=== PATIENT | female | born 1935 | race Caucasian/White ===

== ENCOUNTER 2019-10-18 10:43 | Inpatient (IN) | payer OTHER ==
[2019-10-18 14:25] LABS: ALT/SGPT 30 U/L (12-78); AST/SGOT 42 U/L (15-37); Alkaline Phosphatase 63 U/L (45-117); BUN Blood Urea Nitrogen 40 mg/dL (7-18); Bicarbonate 26 mmol/L (21-32); Bilirubin Direct 0.2 mg/dL (0-0.2); Bilirubin Total 0.3 mg/dL (0.2-1.0); Glucose Level 108 mg/dL (74-106); Magnesium 2.5 mg/dL (1.8-2.4); NT PRO-BNP 122 pg/mL (<450); Potassium 3.8 mmol/L (3.5-5.1); Protein, Total 6.9 g/dL (6.4-8.2); Sodium Level 142 mmol/L (136-145); Troponin I < 0.02 ng/mL (0.0-0.045)
[2019-10-18 14:34] LABS: Absolute Lymphocytes (CBC) 0.6 K/uL (0.7-4.9); Basophils % 0.4 % (0-1.3); Hematocrit 35.7 % (36.0-45.0); Lymphocytes % 11.9 % (15.3-44.8); MPV 7.8 fL (7.6-11.3); Protime INR 1.01; RBC Red Blood Cell Count 3.87 M/uL (3.86-4.86)
--- NOTE | 2019-10-18 14:53 | RAD REPORT ---
EXAM DESCRIPTION: RAD - Chest Single View - 10/18/2019 2:15 pm CLINICAL HISTORY: FALL,TRAUMA Chest pain. COMPARISON: CHEST SINGLE VIEW dated 03/23/2013 FINDINGS: Portable technique limits examination quality. The lungs are grossly clear. The heart is upper limit of normal in size. No displaced fractures. IMPRESSION: No acute intrathoracic process suspected.
--- NOTE | 2019-10-18 15:28 | P.HP ---
Certification for Inpatient Patient admitted to: Observation With expected LOS: <2 Midnights Practitioner: I am a practitioner with admitting privileges, knowledge of patient current condition, hospital course, and medical plan of care. Services: Services provided to patient in accordance with Admission requirements found in Title 42 Section 412.3 of the Code of Federal Regulations Patient History Date of Service: 10/18/19 Reason for admission: Syncope History of Present Illness: 83-year-old woman with a history CVA in the past was brought to the emergency department by EMS because she passed at a counter while trying to get a movie ticket. Patient reports she fell backwards and hit her head. She became awake while still on the floor and does not know how many min she passed out. She denied any warning signs or dizziness or palpitations prior to the fall. She denied any headache or shortness of breath. She recently developed upper respiratory infection for which she was taking Z-Leighton. She denies any limb weakness. No facial deviation, and no problem with speech or vision. Head CT in the ED reported no acute intracranial changes. Her EKG demonstrated sinus rhythm. Her blood work shows some signs of dehydration. Her blood pressure was soft as recorded in the ED. Initial troponin negative. Patient is placed under observation for further syncope workup Allergies Penicillins Allergy (Intermediate, Verified 03/23/13 09:22) Hives Home Medications: Ascorbic Acid [Vitamin C*] 500 mg PO DAILY 03/23/13 Cholecalciferol (Vitamin D3) [Vitamin D 1000 Iu Tab*] 1,000 unit PO DAILY Estrogens,Conj [Premarin*] 0.625 mg PO DAILY 03/23/13 Ezetimibe/Simvastatin [Vytorin 10-20 mg Tablet] 1 each PO BEDTIME 03/23/13 Iron,Carb/Vit C/Vit B12/Folic [Iron 100 Plus Tablet] 1 each PO SEECOM 03/23/13 Multivitamin [Multiple Vitamins] 1 each PO DAILY 03/23/13 Aspirin/Dipyridamole [Aggrenox 25 mg-200 mg Capsule] 1 each PO BID #60 cpmp.12hr 03/24/13 Acetam/Caff/Butal [Fioricet*] 1 tab PO Q6H PRN #30 tab 03/25/13 - Past Medical/Surgical History Diabetic: No -: Hyperlipidemia -: -: CVA - Family History Family History: Reviewed- Non-Contributory (She stated her parents from old age.) - Social History Alcohol use: No CD- Drugs: No Caffeine use: Yes Review of Systems Other: General: No fever, no malaise, no unintentional weight loss. Eyes: No eye discharge, Respiratory: No shortness of breath. She cough occasionally. CVS: No chest pain, no palpitation, no lightheadedness. GI: No abdominal pain, no nausea no vomit, no constipation, no diarrhea. Genitourinary: No dysuria, no urinary frequency, no incontinence, no hematuria. Musculoskeletal: No joint pains, or joint swelling, no gait instability. Neurology: No headache, no asymmetric weakness, no problem with swallowing. Except as documented, all other systems reviewed and negative. Physical Examination - Physical Exam General: Alert, In no apparent distress, Oriented x3 HEENT: PERRLA, Mucous membr. moist/pink, Other (Small bruise noted on the occipita area of scalp.), EOMI, Sclerae nonicteric Neck: Supple, 2+ carotid pulse no bruit, JVD not distended Respiratory: Clear to auscultation bilaterally, Normal air movement Cardiovascular: No edema, Regular rate/rhythm, Normal S1 S2 Capillary refill: <2 Seconds Gastrointestinal: Normal bowel sounds, Soft and benign, Non-distended, No tenderness Musculoskeletal: No swelling Integumentary: No rashes Neurological: Normal speech, Normal strength at 5/5 x4 extr, Cranial nerves 3- 12 intact, Normal affect - Studies Laboratory Data (last 24 hrs) 10/18/19 12:10: PT 11.9, INR 1.01 10/18/19 12:10: WBC 5.0, Hgb 11.8 L, Hct 35.7 L, Plt Count 241 10/18/19 12:10: Sodium 142, Potassium 3.8, BUN 40 H, Creatinine 1.55 H, Glucose 108 H, Magnesium 2.5 H, Total Bilirubin 0.3, AST 42 H, ALT 30, Alkaline Phosphatase 63, Troponin I < 0.02 Assessment and Plan - Problems (Diagnosis) (1) Syncope and collapse Current Visit: Yes Status: Acute (2) Hyperlipidemia Current Visit: Yes Status: Acute (3) URI (upper respiratory infection) Current Visit: Yes Status: Acute (4) Acute renal failure Current Visit: Yes Status: Acute (5) History of CVA (cerebrovascular accident) Current Visit: Yes Status: Chronic - Plan Place under observation with telemetry. Trend troponin Syncope work up with echocardiogram and carotid Doppler. Continue Aggrenox Check lipid profile Statin pending lipid profile IV hydration Monitor renal function. Check orthostatics vitals. - Advance Directives Does patient have a Living Will: Yes Does patient have a Durable POA for Healthcare: No
[2019-10-18] MEDS ORDERED: ACETAMINOPHEN 500 MG TAB PO PRN (16:10)
[2019-10-18] MEDS ORDERED: ONDANSETRON 4 MG/2 ML VIAL IV PRN (16:10)
[2019-10-18 17:52] VITALS: BMI 17.6
[2019-10-18] MEDS ORDERED: POTASSIUM CL SA 10 MEQ TAB PO ONE ×2 (17:55→20:00)
[2019-10-18] MEDS: NA CHLORIDE 0.9% 1,000 ML IV SCH (18:35)
[2019-10-18 19:02] LABS: Thyroid Stimulating Hormone 0.543 uIU/mL (0.360-3.740); Troponin I < 0.02 ng/mL (0.0-0.045)
--- NOTE | 2019-10-18 23:32 | RAD REPORT ---
EXAM DESCRIPTION: CT - [id number] - 10/18/2019 2:00 pm CLINICAL HISTORY: Fall, head and neck injury COMPARISON: CT head February 2013. TECHNIQUE: Axial 5 mm thick images of the head were obtained. Axial 2 mm thick images of the cervic al spine were obtained with sagittal and coronal reconstruction images generated and reviewed. All CT scans are performed using dose optimization technique as appropriate and may include automated exposure control or mA/KV adjustment according to patient size. FINDINGS: No intracranial hemorrhage, mass, edema or acute intracranial finding. No acute cortical based infarc tion. No cortical edema or sulcal effacement. Mild atrophy changes are present. Ventricles are in pro portion to any volume loss. Patient has very pronounced chronic ischemic change throughout the cerebr al white matter extending into the basal ganglia and thalamus tissues. No extra-axial fluid collectio ns. With mastoid air cells are clear. Mucosal thickening and air-fluid levels present in each maxilla ry sinus. No globe or orbit abnormality seen. Very slight wedging of the C5 body noted. This is common in the setting of degenerative change. No ac teller compression fracture seen. Prominent anterior endplate spurring changes are present C5-T1. Disc s pace narrowing is present at all levels from C4-T1. Prominent facet joint degenerative changes are pr esent. There is significant left foraminal stenosis at C3-4. Slight anterior subluxation present C4 o n C5 secondary to degenerative change. No fracture or acute bony abnormality. Central canal detail is inherently limited. No paraspinal mass or hematoma. Due to technical malfunctions occurring at the time of the examination, a report could not be generat ed and no prior imaging studies could be reviewed. Therefore, final written report was delayed. Findi ngs were telephoned to the referring clinician at the time of the study. IMPRESSION: Prominent chronic ischemic change and mild atrophy changes are present. No acute intracr anial finding. Prominent cervical spine degenerative change present without acute finding identifiable. Bilateral maxillary sinusitis.
--- NOTE | 2019-10-18 23:35 | EDPHYS ---
Physician Documentation [facility] Name: Galina Rodas Age: 83 yrs Sex: Female : 1935 Arrival Date: 10/18/2019 Time: 10:46 Bed 17 Private MD: ED Physician Dixie Carrillo HPI: 10/18 11:06 This 83 yrs old Female presents to ER via EMS with complaints of Head injury, syncope. jmm 11:06 The patient has experienced syncope, collapsed. Onset: The symptoms/episode jmm began/occurred acutely, just prior to arrival. Duration: This was a single episode. Context: occurred. Associated injury: Head/face:. This is an 83 year old female that presents to the ED after a syncopal episode which occurred just prior to arrival. Patient states she was standing in line and collapsed, hitting her head. Patient states having chest congestion over the past few days. PCP had evaluated her for this. Patient currently denies chest pain, shortness of breath, abdominal pain. . Historical: - Allergies: 12:45 PENICILLINS; ph - Home Meds: 12:45 unknown blood thinner [Active]; ph - PMHx: 12:45 TIA; ph - Immunization history: Last tetanus immunization: unknown. - Social history:: Smoking status: Patient/guardian denies using tobacco. - Ebola Screening: : No symptoms or risks identified at this time. ROS: 11:06 Constitutional: Negative for fever, chills, and weight loss. jmm 11:06 Cardiovascular: Negative for chest pain, palpitations, and edema, Abdomen/GI: Negative for abdominal pain, nausea, vomiting, diarrhea, and constipation, Back: Negative for injury and pain, Neuro: Negative for headache, weakness, numbness, tingling, and seizure. 11:06 Respiratory: Positive for cough. 11:06 All other systems are negative. Exam: 11:06 Constitutional: This is a well developed, well nourished patient who is awake, alert, jmm and in no acute distress. 11:06 Eyes: EOMI, no conjunctival erythema appreciated ENT: Moist Mucus Membranes Neck: Trachea midline, Supple Chest/axilla: Normal chest wall appearance and motion. 11:06 Head/face: posterior hematoma noted. 11:06 Cardiovascular: Rate: normal, Rhythm: regular. 11:06 Respiratory: the patient does not display signs of respiratory distress, Respirations: normal. 11:06 Abdomen/GI: Inspection: abdomen appears normal, Bowel sounds: normal, Palpation: abdomen is soft and non-tender. 11:06 Musculoskeletal/extremity: ROM: intact in all extremities. 11:06 Skin: Appearance: Color: normal in color. 11:06 Neuro: Orientation: is normal, Mentation: is normal, Memory: is normal. 11:06 Psych: Behavior/mood is pleasant, cooperative. Vital Signs: 11:10 BP 115 / 57; Pulse 68; Resp 18; Temp 97.6; Pulse Ox 98% on R/A; ph 11:59 BP 107 / 58; Pulse 67; Resp 18; Pulse Ox 100% on R/A; ph 14:22 BP 126 / 66; Pulse 67; Resp 18; Pulse Ox 98% on 2 lpm NC; mg2 15:23 BP 121 / 64; Pulse 73; Resp 18; Pulse Ox 97% on 2 lpm NC; mg2 [place] Coma Score: 10:50 Eye Response: spontaneous(4). Verbal Response: oriented(5). Motor Response: obeys ph commands(6). Total: 15. Trauma Score (Adult): 10:50 Eye Response: spontaneous(1); Verbal Response: oriented(1); Motor Response: obeys ph commands(2); Systolic BP: > 89 mm Hg(4); Respiratory Rate: 10 to 29 per min(4); [place]mo Score: 15; Trauma Score: 12 11:59 Eye Response: spontaneous(1); Verbal Response: oriented(1); Motor Response: obeys ph commands(2); Systolic BP: > 89 mm Hg(4); Respiratory Rate: 10 to 29 per min(4); [place]mo Score: 15; Trauma Score: 12 MDM: 11:02 Patient medically screened. [facility] 14:01 Data reviewed: vital signs, nurses notes. Counseling: I had a detailed discussion with ras the patient and/or guardian regarding: the historical points, exam findings, and any diagnostic results supporting the discharge/admit diagnosis, lab results, radiology results, the need for further work-up and treatment in the hospital. ED course: I discussed the patient with Dr. Lemon whom accepted admission. . 10/18 11:41 Order name: Cardiac monitoring; Complete Time: 12:17 [facility] 10/18 11:41 Order name: EKG - Nurse/Tech; Complete Time: 12:17 [facility] 10/18 11:41 Order name: IV Saline Lock; Complete Time: 12: [facility] 10/18 11:41 Order name: Labs collected and sent; Complete Time: 12:17 [facility] 10/18 11:41 Order name: O2 Per Protocol; Complete Time: 12:17 [facility] 10/18 11:41 Order name: O2 Sat Monitoring; Complete Time: 12:18 [facility] Administered Medications: No medications were administered Disposition: 10/18/19 14:04 Hospitalization ordered by Jeff Lemon for Observation. Preliminary diagnosis are Syncope and collapse, Dehydration. - Bed requested for Telemetry/MedSurg (observation). - Status is Observation. mg2 - Condition is Stable. - Problem is new. - Symptoms have improved. UTI on Admission? No Addendum: 10/26/2019 07:28 Co-signature as Attending Physician, Dixie Carrillo MD. m a2 Signatures: Myriam Dai RN RN Hermilo Goldstein PA PA [facility] Trinidad Gil RN RN Dixie Carrillo MD MD ma2 Zac Cullen RN RN mg2 Corrections: (The following items were deleted from the chart) 10/18 15:36 14:04 Hospitalization Ordered by Jeff Lemon for Observation. Preliminary diagnosis dw is Syncope and collapse; Dehydration. Bed requested for Telemetry/MedSurg (observation). Status is Observation. Condition is Stable. Problem is new. Symptoms have improved. UTI on Admission? No. [facility] 16:26 15:36 10/18/2019 14:04 Hospitalization Ordered by Jeff Lemon for Observation. mg2 Preliminary diagnosis is Syncope and collapse; Dehydration. Bed requested for Telemetry/MedSurg (observation). Status is Observation. Condition is Stable. Problem is new. Symptoms have improved. UTI on Admission? No. dw
--- NOTE | 2019-10-18 23:35 | ER ---
Nurse's Notes [facility] Name: Galina Rodas Age: 83 yrs Sex: Female : 1935 Arrival Date: 10/18/2019 Time: 10:46 Bed 17 Private MD: Diagnosis: Syncope and collapse;Dehydration Presentation: 10/18 10:50 Presenting complaint: EMS states: Was at movie theater, stood up from seated position ph and had syncopal episode, fall and hit back of head, does take blood thinners but does not know what kind. Transition of care: patient was not received from another setting of care. Onset of symptoms was October 18, 2019. Risk Assessment: Do you want to hurt yourself or someone else? Patient reports no desire to harm self or others. Initial Sepsis Screen: Does the patient meet any 2 criteria? No. Patient's initial sepsis screen is negative. Does the patient have a suspected source of infection? No. Patient's initial sepsis screen is negative. Care prior to arrival: IV initiated. 18 GA, in the right antecubital area. 10:50 Method Of Arrival: EMS: [facility] ph 10:50 Acuity: AMARIS 2 ph 10:50 Mechanism of Injury: Fall from standing position. Trauma event details: Injury occurred ph in the [facility], Injury occurred: in a public building. Injury occurred: October 18, 2019. Trauma Activation: Physician: ED Physician; Name: Lorena; Notified At: ; Arrived At: Physician: General Surgeon; Name: ; Notified At: ; Arrived At: Physician: Radiology; Name: ; Notified At: ; Arrived At: Physician: Respiratory; Name: ; Notified At: ; Arrived At: Physician: Lab; Name: ; Notified At: ; Arrived At: Historical: - Allergies: 12:45 PENICILLINS; ph - Home Meds: 12:45 unknown blood thinner [Active]; ph - PMHx: 12:45 TIA; ph - Immunization history: Last tetanus immunization: unknown. - Social history:: Smoking status: Patient/guardian denies using tobacco. - Ebola Screening: : No symptoms or risks identified at this time. Screenin:44 Abuse screen: Denies threats or abuse. Denies injuries from another. Tuberculosis ph screening: No symptoms or risk factors identified. 12:47 Nutritional screening: No deficits noted. Fall Risk Fall in past 12 months (25 points). ph No secondary diagnosis (0 pts). IV access (20 points). Ambulatory Aid- None/Bed Rest/Nurse Assist (0 pts). Gait- Normal/Bed Rest/Wheelchair (0 pts) Mental Status- Oriented to own ability (0 pts). Total [place] Fall Scale indicates Low Risk Score (25-44 pts). Fall prevention measures have been instituted. Side Rails Up X 2 Frequent Obs/Assesments occuring As available Patient and Family Educated on Fall Prevention Program and strategies. Primary Survey: 10:50 NO uncontrolled hemorrhage observed. A: A: The patient is alert. Airway: patent, No ph supplemental oxygen in use on arrival. Oral cavity: clear. Breathing/Chest: Respiratory pattern:. Breathing/Chest: Respiratory pattern: regular, Respiratory effort: spontaneous, unlabored, Breath sounds: clear, bilaterally. Chest inspection: symmetrical rise and fall of the chest. Circulation: Skin color: pink, Skin temperature: warm, dry. Disability Alert. Exposure/Environment: There is no evidence of uncontrolled external bleeding. Obvious injury(ies) are noted at this time: hematoma to back of head. 13:36 Reassessment Airway Airway Patent Breathing/Chest Respiratory pattern Regular mg2 Respiratory effort Spontaneous Unlabored Breath sounds Clear Circulation Color [place] Disability Alert. Secondary Survey: 10:50 HEENT: Head Other hematoma to occipital area. Gastrointestinal: No deficits noted. ph Musculoskeletal: No deficits noted. Assessment: 11:00 General: Appears in no apparent distress. comfortable, well groomed, Behavior is calm, ph cooperative, appropriate for age. Pain: Complains of pain in occipital area. Neuro: Level of Consciousness is awake, alert, obeys commands, Oriented to person, place, time, situation, Reports dizziness, headache a syncopal episode. Cardiovascular: Capillary refill < 3 seconds in bilateral fingers Patient's skin is warm and dry. Respiratory: Airway is patent Respiratory effort is even, unlabored, Respiratory pattern is regular, symmetrical. GI: No signs and/or symptoms were reported involving the gastrointestinal system. Patient currently denies nausea, vomiting. Derm: Skin is intact, Skin is pink, warm \T\ dry. Musculoskeletal: Circulation, motion, and sensation intact. Range of motion: intact in all extremities, Swelling present in back of head. 12:00 Reassessment: Patient appears in no apparent distress at this time. Patient and/or ph family updated on plan of care and expected duration. Pain level reassessed. Patient is alert, oriented x 3, equal unlabored respirations, skin warm/dry/pink. Pt resting quietly, awaiting CT scan results. 13:36 Reassessment: Patient appears in no apparent distress at this time. Patient and/or mg2 family updated on plan of care and expected duration. Pain level reassessed. Patient is alert, oriented x 3, equal unlabored respirations, skin warm/dry/pink. 14:24 Reassessment: patient informed about the plan for admission and she agreed. mg2 15:54 Reassessment: meal served. mg2 Vital Signs: 11:10 BP 115 / 57; Pulse 68; Resp 18; Temp 97.6; Pulse Ox 98% on R/A; ph 11:59 BP 107 / 58; Pulse 67; Resp 18; Pulse Ox 100% on R/A; ph 14:22 BP 126 / 66; Pulse 67; Resp 18; Pulse Ox 98% on 2 lpm NC; mg2 15:23 BP 121 / 64; Pulse 73; Resp 18; Pulse Ox 97% on 2 lpm NC; mg2 [place] Coma Score: 10:50 Eye Response: spontaneous(4). Verbal Response: oriented(5). Motor Response: obeys ph commands(6). Total: 15. Trauma Score (Adult): 10:50 Eye Response: spontaneous(1); Verbal Response: oriented(1); Motor Response: obeys ph commands(2); Systolic BP: > 89 mm Hg(4); Respiratory Rate: 10 to 29 per min(4); Elmo Score: 15; Trauma Score: 12 11:59 Eye Response: spontaneous(1); Verbal Response: oriented(1); Motor Response: obeys ph commands(2); Systolic BP: > 89 mm Hg(4); Respiratory Rate: 10 to 29 per min(4); Elmo Score: 15; Trauma Score: 12 ED Course: 10:46 Patient arrived in ED. ph 10:48 Hermilo Goldstein PA is PHCP. [facility] 10:48 Dixie Carrillo MD is Attending Physician. [facility] 10:50 Trinidad Gil RN is Primary Nurse. ph 10:51 Triage completed. ph 11:00 Maintain EMS IV. Dressing intact. Good blood return noted. Site clean \T\ dry. Gauge \T\ ph site: 18 RAC. Patient maintains SpO2 saturation greater than 95% on room air. Thermoregulation: warm blanket given to patient. 12:46 Arm band placed on. ph 12:46 Patient has correct armband on for positive identification. Bed in low position. Call ph light in reach. Side rails up X2. campus monitor on. Pulse ox on. NIBP on. Door closed. Noise minimized. Lights dimmed. Warm blanket given. 13:36 No provider procedures requiring assistance completed. mg2 14:02 Jeff Lemon is Hospitalizing Provider. ras Administered Medications: No medications were administered Intake: 10:50 PO: 0ml; Total: 0ml. ph Output: 10:50 Urine: 0ml; Total: 0ml. ph Outcome: 14:04 Decision to Hospitalize by Provider. ras 16:26 Patient left the ED. mg2 Signatures: Hermilo Goldstein PA PA jmm Hall, Patricia, RN RN Zac Cullne RN RN mg2
[2019-10-19] MEDS: NA CHLORIDE 0.9% 1,000 ML IV SCH ×3 (03:54→22:14)
[2019-10-19 04:16] LABS: Urine Appearance CLEAR; Urine Bilirubin NEGATIVE (NEG); Urine Blood NEGATIVE (NEG); Urine Color YELLOW; Urine Glucose NEGATIVE (NEG); Urine Microscopic Reflex NO UMIC; Urine Protein NEGATIVE (NEG); Urine Specific Gravity 1.015 (1.005-1.030); Urine Urobilinogen 0.2 mg/dL (0.2-1.0); Urine pH 5.5 (5.0-7.0)
[2019-10-19 06:40] LABS: Absolute Lymphocytes (CBC) 1.4 K/uL (0.7-4.9); Basophils % 0.4 % (0-1.3); Hematocrit 32.5 % (36.0-45.0); MPV 7.8 fL (7.6-11.3); RBC Red Blood Cell Count 3.57 M/uL (3.86-4.86)
[2019-10-19 06:41] LABS: Magnesium 2.2 mg/dL (1.8-2.4); Phosphorus 2.4 mg/dL (2.5-4.9); Potassium 3.7 mmol/L (3.5-5.1)
[2019-10-19] MEDS ORDERED: POTASSIUM CL SA 10 MEQ TAB PO ONE (08:00)
[2019-10-19] MEDS: POTASS/SODIUM PHOSPHATE 1 PKT POWD.PACK PO SCH ×3 (09:20→11:30)
[2019-10-19] MEDS: ENOXAPARIN 40 MG/0.4 ML SQ SCH (09:21)
--- NOTE | 2019-10-19 10:47 | P.PN ---
Subjective Date of Service: 10/19/19 Chief Complaint: Syncope Patient states she is not feeling too good today. She reports persistent nonproductive cough. She denies any chest pain or shortness of breath. She is orthostatic. Acute renal failure has resolved. Physical Examination - Vital Signs Temperature: 100.2 F Blood Pressure: 148/64 Pulse: 68 Respirations: 20 Pulse Ox (%): 90 - Physical Exam General: Alert, In no apparent distress HEENT: Mucous membr. moist/pink Neck: Supple, JVD not distended Respiratory: Clear to auscultation bilaterally, Normal air movement Cardiovascular: No edema, Regular rate/rhythm, Normal S1 S2 Gastrointestinal: Normal bowel sounds, Soft and benign, No tenderness Musculoskeletal: No swelling Integumentary: No rashes Neurological: Normal speech, Normal strength at 5/5 x4 extr - Studies Laboratory Data (last 24 hrs) 10/18/19 12:10: PT 11.9, INR 1.01 10/18/19 12:10: WBC 5.0, Hgb 11.8 L, Hct 35.7 L, Plt Count 241 10/18/19 12:10: Sodium 142, Potassium 3.8, BUN 40 H, Creatinine 1.55 H, Glucose 108 H, Magnesium 2.5 H, Total Bilirubin 0.3, AST 42 H, ALT 30, Alkaline Phosphatase 63, Troponin I < 0.02 Assessment And Plan - Current Problems (Diagnosis) (1) Syncope and collapse Current Visit: Yes Status: Acute (2) Hyperlipidemia Current Visit: Yes Status: Acute (3) URI (upper respiratory infection) Current Visit: Yes Status: Acute (4) Acute renal failure Current Visit: Yes Status: Acute (5) History of CVA (cerebrovascular accident) Current Visit: Yes Status: Chronic - Plan Trend troponin negative. Am told no echocardiogram and carotid Doppler till Thursday. They can be done as an outpatient. Continue Aggrenox Continue IV hydration IV hydration Monitor renal function. Monitor orthostatics vitals.
[2019-10-19] MEDS: guaiFENesin 100 MG/5 ML UCUP PO PRN (18:39)
[2019-10-20 06:46] LABS: Phosphorus 2.3 mg/dL (2.5-4.9); Potassium 3.7 mmol/L (3.5-5.1)
--- NOTE | 2019-10-20 08:13 | EKG ---
Test Date: 2019-10-18 Test Time: 12:14:47 [employer] Counselor: JULIO MEASUREMENT RESULTS: Intervals: Rate: 66 ND: 120 QRSD: 94 QT: 428 QTc: 448 Dixie: P: 41 ND: 120 QRS: 66 T: 71 INTERPRETIVE STATEMENTS: Normal sinus rhythm Incomplete right bundle branch block Borderline ECG Compared to ECG 03/23/2013 09:29:25 Incomplete right bundle-branch block now present ST (T wave) deviation no longer present Electronically Signed On 10-20-19 08:10:30 [employer] METER READER by German Zamorano
[2019-10-20] MEDS: NA CHLORIDE 0.9% 1,000 ML IV SCH (08:29)
[2019-10-20] MEDS: ENOXAPARIN 40 MG/0.4 ML SQ SCH (08:31)
[2019-10-20] MEDS ORDERED: POTASSIUM PHOS IN 0.9 % NACL 15 MMOL/250 ML BAG IV ONE (09:00)
[2019-10-20] MEDS: guaiFENesin 100 MG/5 ML UCUP PO PRN ×2 (11:03→21:03)
--- NOTE | 2019-10-20 11:16 | P.PN ---
Subjective Date of Service: 10/20/19 Chief Complaint: Syncope Subjective: No new changes, Tolerating diet (still dizziness on standing , orthostatic vitals from yesterday show some drop in BP with standing), C/O voiced Review of Systems Unremarkable Physical Examination - Vital Signs Temperature: 99.2 F Blood Pressure: 174/81 Pulse: 63 Respirations: 18 Pulse Ox (%): 96 - Physical Exam General: Alert, In no apparent distress, Oriented x3 HEENT: Atraumatic, Normocephalic Respiratory: Clear to auscultation bilaterally, Normal air movement Cardiovascular: No edema, Normal pulses, Regular rate/rhythm, Normal S1 S2 Gastrointestinal: Normal bowel sounds, Soft and benign Musculoskeletal: No clubbing, No swelling Integumentary: No rashes, No breakdown Neurological: Normal gait, Normal speech - Studies Laboratory Last Values WBC 3.6 K/uL (4.3-10.9) L D 10/19/19 05:49 RBC 3.57 M/uL (3.86-4.86) L 10/19/19 05:49 Hgb 11.2 g/dL (12.0-15.0) L 10/19/19 05:49 Hct 32.5 % (36.0-45.0) L 10/19/19 05:49 MCV 90.9 fL (80-100) 10/19/19 05:49 MCH 31.3 pg (27.0-35.0) 10/19/19 05:49 MCHC 34.5 g/dL (32.0-36.0) 10/19/19 05:49 RDW 12.6 % (12.1-15.2) 10/19/19 05:49 Plt Count 218 K/uL (152-406) 10/19/19 05:49 MPV 7.8 fL (7.6-11.3) 10/19/19 05:49 Neutrophils % 46.6 % (41.7-73.7) 10/19/19 05:49 Lymphocytes % 38.0 % (15.3-44.8) 10/19/19 05:49 Monocytes % 14.9 % (3.3-12.3) H 10/19/19 05:49 Eosinophils % 0.1 % (0-4.4) 10/19/19 05:49 Basophils % 0.4 % (0-1.3) 10/19/19 05:49 Absolute Neutrophils 1.7 K/uL (1.8-8.0) L 10/19/19 05:49 Absolute Lymphocytes 1.4 K/uL (0.7-4.9) 10/19/19 05:49 Absolute Monocytes 0.5 K/uL (0.1-1.3) 10/19/19 05:49 Absolute Eosinophils 0.0 K/uL (0-0.5) 10/19/19 05:49 Absolute Basophils 0.0 K/uL (0-0.5) 10/19/19 05:49 PT 11.9 SECONDS (9.5-12.5) 10/18/19 12:10 INR 1.01 10/18/19 12:10 Sodium 141 mmol/L (136-145) 10/20/19 05:23 Potassium 3.7 mmol/L (3.5-5.1) 10/20/19 05:23 Chloride 109 mmol/L (98-107) H 10/20/19 05:23 Carbon Dioxide 28 mmol/L (21-32) 10/20/19 05:23 BUN 11 mg/dL (7-18) 10/20/19 05:23 Creatinine 0.72 mg/dL (0.55-1.3) 10/20/19 05:23 Estimated GFR 77 mL/min (=/>90) L 10/20/19 05:23 Glucose 84 mg/dL (74-106) 10/20/19 05:23 Calcium 7.6 mg/dL (8.5-10.1) L 10/20/19 05:23 Phosphorus 2.3 mg/dL (2.5-4.9) L 10/20/19 05:23 Magnesium 2.2 mg/dL (1.8-2.4) 10/19/19 05:49 Total Bilirubin 0.3 mg/dL (0.2-1.0) 10/18/19 12:10 Direct Bilirubin 0.2 mg/dL (0-0.2) 10/18/19 12:10 AST 42 U/L (15-37) H 10/18/19 12:10 ALT 30 U/L (12-78) 10/18/19 12:10 Alkaline Phosphatase 63 U/L (45-117) 10/18/19 12:10 Troponin I < 0.02 ng/mL (0.0-0.045) 10/19/19 00:12 NT-Pro-B Natriuret Pep 122 pg/mL (<450) 10/18/19 12:10 Serum Total Protein 6.9 g/dL (6.4-8.2) 10/18/19 12:10 Albumin 3.0 g/dL (3.4-5.0) L 10/18/19 12:10 Globulin 3.9 g/dL (2.3-3.5) H 10/18/19 12:10 Albumin/Globulin Ratio 0.8 (1.1-1.8) L 10/18/19 12:10 TSH 0.543 uIU/mL (0.360-3.740) 10/18/19 17:45 Urine Color Yellow 10/19/19 03:31 Urine Appearance Clear 10/19/19 03:31 Urine pH 5.5 (5.0-7.0) 10/19/19 03:31 Ur Specific [place] 1.015 (1.005-1.030) 10/19/19 03:31 Urine Ketones Negative (NEG) 10/19/19 03:31 Urine Blood Negative (NEG) 10/19/19 03:31 Urine Nitrite Negative (NEG) 10/19/19 03:31 Urine Bilirubin Negative (NEG) 10/19/19 03:31 Urine Urobilinogen 0.2 mg/dL (0.2-1.0) 10/19/19 03:31 Ur Leukocyte Esterase Negative (NEG) 10/19/19 03:31 Urine Glucose Negative (NEG) 10/19/19 03:31 Urine Total Protein Negative (NEG) 10/19/19 03:31 Assessment & Plan - Problems (Diagnosis) (1) Acute renal failure Current Visit: Yes Status: Acute (2) Hyperlipidemia Current Visit: Yes Status: Acute (3) Syncope and collapse Current Visit: Yes Status: Acute (4) URI (upper respiratory infection) Current Visit: Yes Status: Acute (5) History of CVA (cerebrovascular accident) Current Visit: Yes Status: Chronic Plan to discharge in: 24 Hours - Code Status/Comfort Care Code Status: Full Code Physician Review: Patient Assessed, Agree with Above Assessment and Plan Physician Review Additional Text: # Recurrent dizziness with orthostatis - continue IVF today - monitor and repsat orthostaiss again today -start PT -Unclear etiology , Echo reviewed by me today shows normal LV function , follow official reading - UA and CXR clear - will obtain carotid doppler # UTI -cx neg # DVT prop - sc heparin Time Spent Managing Pts Care (In Minutes): 30
--- NOTE | 2019-10-20 13:29 | ECHO ---
HEIGHT: 5 ft 2 in WEIGHT: 96 lb 8 oz DATE OF STUDY: 10/20/[address]: david guan 2-DIMENSIONAL: YES M.MODE: YES DOPPLER: YES COLOR FLOW: YES TDS: NO PORTABLE: NO DEFINITY: NO BUBBLE STUDY: NO DIAGNOSIS: SYNCOPE CARDIAC HISTORY: CATHERIZATION: NO SURGERY: NO PROSTHETIC VALVE: NO PACEMAKER: NO MEASUREMENTS (cm) DIASTOLIC (NORMALS) SYSTOLIC (NORMALS) IVSd 0.9 (0.6-1.2) LA Diam 2.2 (1.9-4.0) LVEF 50% LVIDd 4.0 (3.5-5.7) LVIDs 3.0 (2.0-3.5) %FS 25% LVPWd 1.0 (0.6-1.2) Ao Diam 2.5 (2.0-3.7) 2 DIMENSIONAL ASSESSMENT: RIGHT ATRIUM: NORMAL LEFT ATRIUM: NORMAL RIGHT VENTRICLE: NORMAL LEFT VENTRICLE: NORMAL TRICUSPID VALVE: NORMAL MITRAL VALVE: MITRAL ANNULAR CALCIFICATION PULMONIC VALVE: NORMAL AORTIC VALVE: NORMAL PERICARDIAL EFFUSION: NONE AORTIC ROOT: NORMAL LEFT VENTRICULAR WALL MOTION: NORMAL DOPPLER/COLOR FLOW: NORMAL COMMENTS: MITRAL ANNULAR CALCIFICATION. NORMAL LEFT VENTRICULAR SIZE AND FUNCTION. NO WALL MOTION ABNORMALITY. NO EFFUSION. TECHNOLOGIST: Jean Carlos PORTILLO
--- NOTE | 2019-10-20 13:59 | RAD REPORT ---
EXAM DESCRIPTION: - CP - 10/20/2019 1:44 pm CLINICAL HISTORY: cva COMPARISON: Head C Spine Mpr Wo Con dated 10/18/2019; MR STROKE PROTOCOL dated 03/23/2013 TECHNIQUE: Real-time sonographic evaluation of both carotid systems was performed. Doppler interroga tion was performed with waveform tracing bilaterally. FINDINGS: Normal high resistance waveforms are noted in both external carotid arteries. The common c arotid arteries and internal carotid arteries show normal low resistance waveforms. Moderate multifocal hard plaquing is seen in both carotid systems, greatest in the region of the prox imal internal carotid artery on the right. Peak systolic and end diastolic velocity values and the IC A/CCA ratios are in the non-hemodynamically significant range. Antegrade flow seen in both vertebral arteries. IMPRESSION: Moderate atheromatous plaquing is seen involving both carotid systems, greatest involvin g the proximal right ICA. No evidence of a hemodynamically significant stenosis.
[2019-10-20] MEDS ORDERED: LATANOPROST 0.005% 2.5ML OPTH OPTH SCH (21:00)
[2019-10-20] MEDS: LATANOPROST 0.005% EYE DROPS OPTH SCH (21:00)
[2019-10-21 04:28] LABS: Magnesium 1.8 mg/dL (1.8-2.4); Phosphorus 2.3 mg/dL (2.5-4.9); Potassium 3.8 mmol/L (3.5-5.1)
[2019-10-21] MEDS ORDERED: MAGNESIUM SULFATE 1 gm IVPB 1 GM/100 ML BAG IV ONE (06:01)
[2019-10-21] MEDS ORDERED: POTASSIUM PHOS IN 0.9 % NACL 15 MMOL/250 ML BAG IV ONE (07:22)
[2019-10-21] MEDS: guaiFENesin 100 MG/5 ML UCUP PO PRN (08:08)
[2019-10-21] MEDS: ENOXAPARIN 40 MG/0.4 ML SQ SCH (08:08)
[2019-10-21] MEDS ORDERED: DIPYRIDAMOLE/ASPIRIN CAP ER PO SCH ×2 (09:00→21:00)
[2019-10-21] MEDS ORDERED: ATORVASTATIN 20 MG TAB PO SCH ×2 (09:00→21:00)
[2019-10-21] MEDS ORDERED: MECLIZINE HCL 12.5 MG TAB PO PRN (11:02)
--- NOTE | 2019-10-21 11:05 | P.PN ---
Subjective Date of Service: 10/21/19 Chief Complaint: Syncope Subjective: C/O voiced (still dizziness, worse on turning in bed today) Review of Systems 10-point ROS is otherwise unremarkable Physical Examination - Vital Signs Temperature: 97.8 F Blood Pressure: 123/60 Pulse: 67 Respirations: 18 Pulse Ox (%): 94 - Physical Exam General: Alert, Oriented x3 HEENT: Atraumatic, Normocephalic Neck: Supple, 2+ carotid pulse no bruit Respiratory: Clear to auscultation bilaterally, Normal air movement Cardiovascular: Regular rate/rhythm, Normal S1 S2 Gastrointestinal: Normal bowel sounds, Soft and benign Musculoskeletal: No clubbing, No swelling Neurological: Normal gait, Normal speech, Cranial nerves 3-12 intact - Studies Laboratory Last Values WBC 3.6 K/uL (4.3-10.9) L D 10/19/19 05:49 RBC 3.57 M/uL (3.86-4.86) L 10/19/19 05:49 Hgb 11.2 g/dL (12.0-15.0) L 10/19/19 05:49 Hct 32.5 % (36.0-45.0) L 10/19/19 05:49 MCV 90.9 fL (80-100) 10/19/19 05:49 MCH 31.3 pg (27.0-35.0) 10/19/19 05:49 MCHC 34.5 g/dL (32.0-36.0) 10/19/19 05:49 RDW 12.6 % (12.1-15.2) 10/19/19 05:49 Plt Count 218 K/uL (152-406) 10/19/19 05:49 MPV 7.8 fL (7.6-11.3) 10/19/19 05:49 Neutrophils % 46.6 % (41.7-73.7) 10/19/19 05:49 Lymphocytes % 38.0 % (15.3-44.8) 10/19/19 05:49 Monocytes % 14.9 % (3.3-12.3) H 10/19/19 05:49 Eosinophils % 0.1 % (0-4.4) 10/19/19 05:49 Basophils % 0.4 % (0-1.3) 10/19/19 05:49 Absolute Neutrophils 1.7 K/uL (1.8-8.0) L 10/19/19 05:49 Absolute Lymphocytes 1.4 K/uL (0.7-4.9) 10/19/19 05:49 Absolute Monocytes 0.5 K/uL (0.1-1.3) 10/19/19 05:49 Absolute Eosinophils 0.0 K/uL (0-0.5) 10/19/19 05:49 Absolute Basophils 0.0 K/uL (0-0.5) 10/19/19 05:49 PT 11.9 SECONDS (9.5-12.5) 10/18/19 12:10 INR 1.01 10/18/19 12:10 Sodium 140 mmol/L (136-145) 10/21/19 04:03 Potassium 3.8 mmol/L (3.5-5.1) 10/21/19 04:03 Chloride 107 mmol/L (98-107) 10/21/19 04:03 Carbon Dioxide 29 mmol/L (21-32) 10/21/19 04:03 BUN 9 mg/dL (7-18) 10/21/19 04:03 Creatinine 0.66 mg/dL (0.55-1.3) 10/21/19 04:03 Estimated GFR 86 mL/min (=/>90) L 10/21/19 04:03 Glucose 88 mg/dL (74-106) 10/21/19 04:03 Calcium 8.0 mg/dL (8.5-10.1) L 10/21/19 04:03 Phosphorus 2.3 mg/dL (2.5-4.9) L 10/21/19 04:03 Magnesium 1.8 mg/dL (1.8-2.4) 10/21/19 04:03 Total Bilirubin 0.3 mg/dL (0.2-1.0) 10/18/19 12:10 Direct Bilirubin 0.2 mg/dL (0-0.2) 10/18/19 12:10 AST 42 U/L (15-37) H 10/18/19 12:10 ALT 30 U/L (12-78) 10/18/19 12:10 Alkaline Phosphatase 63 U/L (45-117) 10/18/19 12:10 Troponin I < 0.02 ng/mL (0.0-0.045) 10/19/19 00:12 NT-Pro-B Natriuret Pep 122 pg/mL (<450) 10/18/19 12:10 Serum Total Protein 6.9 g/dL (6.4-8.2) 10/18/19 12:10 Albumin 3.0 g/dL (3.4-5.0) L 10/18/19 12:10 Globulin 3.9 g/dL (2.3-3.5) H 10/18/19 12:10 Albumin/Globulin Ratio 0.8 (1.1-1.8) L 10/18/19 12:10 TSH 0.543 uIU/mL (0.360-3.740) 10/18/19 17:45 Urine Color Yellow 10/19/19 03:31 Urine Appearance Clear 10/19/19 03:31 Urine pH 5.5 (5.0-7.0) 10/19/19 03:31 Ur Specific [place] 1.015 (1.005-1.030) 10/19/19 03:31 Urine Ketones Negative (NEG) 10/19/19 03:31 Urine Blood Negative (NEG) 10/19/19 03:31 Urine Nitrite Negative (NEG) 10/19/19 03:31 Urine Bilirubin Negative (NEG) 10/19/19 03:31 Urine Urobilinogen 0.2 mg/dL (0.2-1.0) 10/19/19 03:31 Ur Leukocyte Esterase Negative (NEG) 10/19/19 03:31 Urine Glucose Negative (NEG) 10/19/19 03:31 Urine Total Protein Negative (NEG) 10/19/19 03:31 Medications List Reviewed: Yes Assessment & Plan - Problems (Diagnosis) (1) Acute renal failure Current Visit: Yes Status: Acute (2) Hyperlipidemia Current Visit: Yes Status: Acute (3) Syncope and collapse Current Visit: Yes Status: Acute (4) URI (upper respiratory infection) Current Visit: Yes Status: Acute (5) History of CVA (cerebrovascular accident) Current Visit: Yes Status: Chronic Discharge Plan: Home - Code Status/Comfort Care Code Status Assessed: Yes Code Status: Full Code Physician Review: Patient Assessed, Agree with Above Assessment and Plan Physician Review Additional Text: # Recurrent dizziness - resolved orthostasis now - s/p reproducible dizziness with epleys maneuver today - will start low dose meclizine and follow - Echo /UA and CXR /carotid doppler neg # UTI -cx neg # DVT prop - sc heparin
[2019-10-21] MEDS ORDERED: ASPIRIN DIPYRIDAMOLE PO SCH (21:00)
[2019-10-21] MEDS ORDERED: ATORVASTATIN 40 MG PO SCH (21:00)
[2019-10-21] MEDS: ENSURE ENLIVE 237 ML CAN PO SCH (21:18)
[2019-10-21] MEDS: LATANOPROST 0.005% EYE DROPS OPTH SCH (21:19)
[2019-10-21 23:21] VITALS: O2SAT 93
[2019-10-22 06:44] LABS: Magnesium 2.4 mg/dL (1.8-2.4); Potassium 4.1 mmol/L (3.5-5.1)
[2019-10-22] MEDS: ENSURE ENLIVE 237 ML CAN PO SCH (10:56)
[2019-10-22] MEDS: ENOXAPARIN 40 MG/0.4 ML SQ SCH (10:56)
--- NOTE | 2019-10-22 10:57 | P.DS ---
Admission Date: 10/20/19 Discharge Date: 10/22/19 Disposition: DC HOME/HOME HEALTH CARE Discharge Condition: FAIR Reason for Admission: Syncope - Problems (1) Acute renal failure Current Visit: Yes Status: Acute (2) Hyperlipidemia Current Visit: Yes Status: Acute (3) Syncope and collapse Current Visit: Yes Status: Acute (4) URI (upper respiratory infection) Current Visit: Yes Status: Acute (5) History of CVA (cerebrovascular accident) Current Visit: Yes Status: Chronic Brief History of Present Illness: Patient with no significant past medical history presented with dizziness weakness and cough Hospital Course: on Admission, she was worked up for cardiac etiology of dizziness. She had an echocardiogram that showed moderate aortic stenosis with no significance reduced LV function. She had a carotid ultrasound shows no significant stenosis. She also had a negative CXR as well as a head CT with no intracranial changes. She was noted with orthostatic vitals and given IVF which resolved the orthostasis . She was noted to have benign vertigo with dizziness and had epleys maneuver with meclizine started which improved her symptoms . She will be discharged to assisted living facility previously arranged by her family Vital Signs/Physical Exam: Temp Pulse Resp BP Pulse Ox 97 F 70 18 134/60 92 10/22/19 08:00 10/22/19 08:00 10/22/19 08:00 10/22/19 08:00 10/22/19 08:00 General: Alert, In no apparent distress HEENT: Atraumatic, Normocephalic, Mucous membr. moist/pink Neck: Supple, 2+ carotid pulse no bruit Respiratory: Clear to auscultation bilaterally, Normal air movement Cardiovascular: No edema, Normal pulses Gastrointestinal: Normal bowel sounds, Soft and benign Musculoskeletal: No clubbing, No swelling Integumentary: No rashes, No breakdown Neurological: Normal gait, Normal speech External genitalia: No edema, No masses Laboratory Data at Discharge: WBC 3.6 K/uL (4.3-10.9) L D 10/19/19 05:49 Hgb 11.2 g/dL (12.0-15.0) L 10/19/19 05:49 Hct 32.5 % (36.0-45.0) L 10/19/19 05:49 Plt Count 218 K/uL (152-406) 10/19/19 05:49 PT 11.9 SECONDS (9.5-12.5) 10/18/19 12:10 INR 1.01 10/18/19 12:10 Sodium 141 mmol/L (136-145) 10/22/19 05:42 Potassium 4.1 mmol/L (3.5-5.1) 10/22/19 05:42 BUN 18 mg/dL (7-18) 10/22/19 05:42 Creatinine 0.86 mg/dL (0.55-1.3) 10/22/19 05:42 Glucose 98 mg/dL (74-106) 10/22/19 05:42 Phosphorus 3.0 mg/dL (2.5-4.9) 10/22/19 05:42 Magnesium 2.4 mg/dL (1.8-2.4) D 10/22/19 05:42 Total Bilirubin 0.3 mg/dL (0.2-1.0) 10/18/19 12:10 AST 42 U/L (15-37) H 10/18/19 12:10 ALT 30 U/L (12-78) 10/18/19 12:10 Alkaline Phosphatase 63 U/L (45-117) 10/18/19 12:10 Troponin I < 0.02 ng/mL (0.0-0.045) 10/19/19 00:12 Home Medications: Atorvastatin Calcium 20 mg PO DAILY 10/18/19 Dipyridamole/Aspirin [Aggrenox 25 mg-200 mg Cap*] 1 cap PO DAILY 10/18/19 Latanoprost Ophth [Xalatan 0.005%*] 1 gtt EACH EYE BEDTIME 10/20/19 Meclizine HCl [Antivert*] 25 mg PO Q6H PRN #20 tab 10/22/19 guaiFENesin [Robitussin 100MG/5ML*] 10 ml PO QID PRN #100 ucup 10/22/19 New Medications: guaiFENesin [Robitussin 100MG/5ML*] 10 ml PO QID PRN #100 ucup PRN Reason: Cough Meclizine HCl [Antivert*] 25 mg PO Q6H PRN #20 tab PRN Reason: Dizziness Patient Discharge Instructions: follow with your PCP in 1 week Diet: Regular Activity: Ad sean Time spent managing pt's care (in minutes): 40
[2019-10-22] MEDS: guaiFENesin 100 MG/5 ML UCUP PO PRN (11:01)
[2019-10-22 14:10] VITALS: BP 120/60; TEMP 98
== END 2019-10-22 14:12 | disposition home health service (06) | DRG 312 ==
LOC: ER 13:55 → ERHOLD 15:17 → 2ND 16:12 → OBSVTOIN 10-20 16:09
PROVIDERS: ADMIT Internal Medicine; ATTEND Internal Medicine
DX: R55 Syncope and collapse (principal); N17.9 Acute kidney failure, unspecified; E78.5 Hyperlipidemia, unspecified; J06.9 Acute upper respiratory infection, unspecified; E86.0 Dehydration; Z86.73 Personal history of transient ischemic attack (TIA), and cerebral infarction without residual deficits
CPT/HCPCS: 36415; 70450; 71045; 72125; 80048; 80076; 81003; 83735; 83880; 84100; 84443; 84484; 85025; 85610; 87804; 93005; 93306; 93880; 94760; 97112; 97116; 97161; 97530; 99284; G0378; J1650; J2405; J3475; J7030